=== PATIENT | female | born 1975 | race Caucasian/White ===

== ENCOUNTER 2020-05-19 10:56 | Emergency (ER) | payer MEDICAID ==
[~2020-05-19] VITALS: Ht 157.5 cm; Wt 72.6 kg
[~2020-05-19 10:56] MED LIST: DIFLUCAN150 MG PO; GLU5 PO; METFORMIN HYD1000 M1 PO; SIMVASTATIN10 M1 PO
[2020-05-19 11:03] VITALS: Ht 157.5 cm; Wt 72.6 kg
[2020-05-19 12:49] LABS: BASOPHIL % 0.2 % (0-2); PLATELET COUNT 200 x10^3mcL (130-400)
[2020-05-19 12:54] LABS: RED CELL DISTRIBUTION WIDTH 14.7 % (11.5-14.5)
[2020-05-19 13:14] LABS: microscopic required? NO
[2020-05-19 13:30] LABS: CARBON DIOXIDE 28.1 mmol/L (21-32); CHLORIDE SERUM 99 mmol/L (98-107); CREATININE SERUM 0.6 mg/dL (0.6-1.0); GFR1 > 60 mL/min; GLUCOSE SERUM 233 mg/dL (74-106); POTASSIUM SERUM 3.8 mmol/L (3.5-5.1); SODIUM SERUM 136 mmol/L (136-145)
[2020-05-19 13:32] LABS: urine erythrocyte NEGATIVE (NEGATIVE)
[2020-05-19 13:34] LABS: ALKALINE PHOSPHATASE 105 U/L (46-116); ALT/SGPT 20 U/L (14-59); AST/SGOT 11 U/L (15-37); BILIRUBIN TOTAL 0.4 mg/dL (0.20-1.00); HDL CHOLESTEROL 55 mg/dL (40-60); LIPASE 92 IU/L (73-393); TOTAL PROTEIN, SERUM 6.7 g/dL (6.4-8.2)
[2020-05-19 13:36] LABS: ALBUMIN 3.2 g/dL (3.4-5.0); CHOLESTEROL 208 mg/dL (<200)
[2020-05-19 13:45] LABS: AMPHETAMINE QUAL UR NONE DETECTED (See below)
[2020-05-19 15:53] VITALS: BP 141/81
== END 2020-05-19 15:53 | disposition home or self-care (01) ==
LOC: ED 10:56
PROVIDERS: Emergency Medicine
DX: R07.89 Other chest pain (principal); R50.9 Fever, unspecified; E11.9 Type 2 diabetes mellitus without complications; Z20.828 Contact with and (suspected) exposure to other viral communicable diseases; Z98.890 Other specified postprocedural states
CPT/HCPCS: 83880; J1885; J7030; Q0092; U0003-CS